=== PATIENT | female | born 1960 | race Hispanic/Latino ===

== ENCOUNTER 2020-12-12 07:07 | Day surgery (SDC) | payer SELFPAY ==
--- NOTE | 2020-12-11 09:49 | RAD REPORT ---
EXAM DESCRIPTION: RAD - Chest Pa And Lat (2 Views) - 12/11/2020 9:40 am CLINICAL HISTORY: PREOP Chest pain. COMPARISON: No comparisons FINDINGS: The lungs are clear. The heart is normal in size. No displaced fractures. IMPRESSION: No acute or concerning finding suspected.
[2020-12-12] MEDS ORDERED: Ringers Lactate 1,000 ML IV ONE (07:35)
[2020-12-12] MEDS ORDERED: FENTANYL CITR 100 MCG/2 ML ONE (07:46)
[2020-12-12] MEDS ORDERED: propofoL 200 MG/20 ML VIAL IV ONE (07:46)
[2020-12-12] MEDS ORDERED: LIDOCAINE 1% MPF 5 ML VIAL ONE (07:48)
[2020-12-12] MEDS ORDERED: MIDAZOLAM HCL 2 MG/2 ML INJ ONE (07:48)
[2020-12-12] MEDS ORDERED: GENTAMICIN 100 MG/100 ML BAG 100 ML IV ONE (08:45)
[2020-12-12] MEDS ORDERED: KETOROLAC 30 MG/ML INJ ONE (09:11)
[2020-12-12] MEDS ORDERED: dexAMETHasone 10 MG/ML VIAL ONE (09:11)
[2020-12-12] MEDS ORDERED: ONDANSETRON 4 MG/2 ML VIAL ONE (09:14)
[2020-12-12] MEDS ORDERED: HYDROCODONE/APAP 5/325 MG TAB PO PRN (09:33)
[2020-12-12] MEDS ORDERED: PHENAZOPYRIDINE 100MG TAB PO ONE ×2 (09:33→10:48)
[2020-12-12] MEDS ORDERED: Gentamicin Inj 160 MG in NA CHLORIDE 0.9% 100 ML IV SCH (10:00)
[2020-12-12] MEDS ORDERED: AMPICILLIN SODIUM 2 GM in NA CHLORIDE 0.9% 100 ML IVPB SCH (10:00)
[2020-12-12 10:13] VITALS: TEMP 97.2
--- NOTE | 2020-12-12 10:16 | OP ---
Surgeon: ARCHIE LORENZO Preoperative Diagnoses: 1.Gross hematuria. 2.Left L4 ureteral mass. 3.Left hydroureteronephrosis. Postoperative Diagnoses: 1.Gross hematuria. 2.Left L4 ureteral mass. 3.Left hydroureteronephrosis. 4.Grade 2 cystocele. Principle Procedures: 1.Cystoscopy. 2.Left retrograde pyelography. 3.Left ureteroscopy with left ureteral brush biopsy taken and sent for cytology. 4.Left ureteral balloon dilatation to 12-Anguillan. 5.Left 8-Anguillan by 26 cm double-J ureteral stent placement. Indication For Procedure: Ms. Abdalla is a 60-year-old woman, who presented to the [facility] with gross hematuria and was admitted to the hospital with left lower quadrant pain associated with the pr esence of a visible mid ureteral lesion at the body of L4. Because of the presence of visible blood in the urine and the ureteral lesion seen, she was counseled on the need for direct ureteroscopic inv estigation in addition to cystoscopy. Procedure In Detail: The patient was consented in the preoperative holding area before being transfe rred to the operative suite where general anesthesia was induced. She was given ampicillin 2 g and g entamicin 160-260 mg IV antimicrobial prophylaxis. Pneumo boots were provided for DVT prophylaxis. She was placed in the lithotomy position, padded and secured to the table appropriately, and her omer sawyer were prepped using Hibiclens. She was draped in standard fashion. The case was then begun usi ng a 22-Anguillan rigid cystoscope to traverse the urethra and into the bladder with ease. Of note, she had a significant, grade 2, cystocele. The urethra was then traversed using the 22-Anguillan rigid cys toscope and the bladder entered. It was then surveyed in its entirety. There were no concerning muc osal lesions, foreign bodies, or stones noted throughout. The entirety of the bladder was surveyed i ncluding the bladder neck. The ureteral orifices were orthotopic in location, and there was no visib le evidence of blood. The left ureteral orifice was then easily cannulated using the tip of a 5-Fren ch ureteral access catheter and a retrograde pyelogram was performed. Left retrograde pyelography: Using a 70:30 mixture of Omnipaque and saline, contrast was injected via the lumen of the 5-Anguillan ur eteral access catheter and did propagate with ease up a relatively nondilated distal ureter before re aching a point of narrowing and obstruction that lasted about 1-1.5 cm in the mid ureter at the upper half of the body of L4. Beyond this, the contrast did propagate into the proximal ureter without an y evidence of filling defect before entering a minimally dilated renal pelvis with mild-moderate kelly ectasis. Additional contrast bolus was given in order to completely fill the renal pelvis and calice s, and no additional mucosal lesions or filling defects were noted in the renal pelvis or proximal ur eter beyond the point of obstruction previously mentioned. As a result, I then passed a Sensor wire via the 5-Anguillan ureteral access catheter and did propagate with ease into the upper pole calyx of th e kidney on the left. I then used a dual-lumen catheter to pass over the Sensor wire into the mid di stal ureter and again injected a bolus of contrast to confirm appropriate intraureteral location of t he wires and ureteral access and dual-lumen catheter dilator. I then removed the dual-lumen catheter and performed direct vision ureteroscopy using a semi-rigid ureteroscope. Left semi-rigid ureteroscopy: Using the short semi-rigid ureteroscope, direct vision was employed to traverse the urethra and into the bladder and then I navigated up the ureteral orifice into the distal ureter and into the mid uret er where a point of strictured narrowing was observed approximately the diameter of 2 of the Sensor w ires at this point. There was no evidence of any papillary tumor or distinct nodular masslike appear ance noted. It simply appeared as the scar. As a result, I employed a ureteral brush biopsy to exte nsively sample the entirety of the circumference of the strictured area of the ureter. This was then sent for pathologic analysis via cytology. I then placed a Bentson guidewire via the semi-rigid ure teroscope beyond the stricture and into the upper pole of the kidney as confirmed fluoroscopically. I then utilized a 12-Anguillan 6 cm ureteral balloon to dilate the strictured region accordingly. Left ureteral balloon dilation: The balloon was positioned to straddle the midbody of L3 down through the midbody of L5 covering the entirety of the region of L4. It was then inflated initially to 15 mmHg and then to 18 and then ulti mately 20 mmHg. At no point was any significant waste noted suggestive of a dense strictured region. This was allowed to dilate for a couple of minutes before the balloon was then deflated confirmed f luoroscopically and removed. I then replaced the semi-rigid ureteroscope and navigated the scope bey ond the dilated portion of the ureter into the proximal ureter where no additional points of obstruct ion or mucosal lesions were noted. As such, I removed the semi-rigid ureteroscope and back-loaded th e rigid 22-Anguillan cystoscope over the indwelling safety wire in order to pass an 8-Anguillan by 26 cm do uble-J left ureteral stent. A coil was observed fluoroscopically within the upper pole of the kidney and an additional coil was formed within the bladder observed cystoscopically. The bladder was then decompressed of fluid and urine, and she tolerated the procedure well. Complications: None. Discharge Disposition: She will maintain the ureteral stent for at least the next 4-6 weeks before i t may be considered for removal. She should follow up within the next 2 weeks to discuss the results of the cytopathology in case any malignancy is noted. In the absence of any malignancy, we could pl an to remove the stent and observe for recurrence of obstruction over the course of the next several months and initiate further management at that time. Alternatively, we could plan repeat operative e valuation in 4-6 weeks with laser incision of a portion of the stricture that was incompletely dilate d by the 12-Anguillan ureteral balloon. This will be discussed on followup in the clinic. SABINO/BEULAH Voice ID: [id number] Report ID: [id number]
[2020-12-12] MEDS ORDERED: HYDROCODONE/APAP 5/325 MG TAB ONE (10:48)
[2020-12-12 11:01] VITALS: BP 137/57; O2SAT 100
--- NOTE | 2020-12-12 11:16 | RAD REPORT ---
EXAM DESCRIPTION: RAD - Urethrocystogrphy Retrograde - 12/12/2020 9:51 am CLINICAL HISTORY: ICD N 20.0 FINDINGS: Twenty-two fluoroscopic spot images obtained. Fluoroscopy time 0.4 minutes Left ureter was cannulated and contrast administered. Examination was performed by Dr Everett
== END 2020-12-12 11:05 | disposition home or self-care (01) ==
LOC: OR 07:07
PROVIDERS: ATTEND Urology
PROC: 0T778DZ Dilation of Left Ureter with Intraluminal Device, Via Natural or Artificial Opening Endoscopic (ICD-10-PCS; 2020-12-12)
PROC: 0TB78ZX Excision of Left Ureter, Via Natural or Artificial Opening Endoscopic, Diagnostic (ICD-10-PCS; principal; 2020-12-12 09:00)
DX: N13.1 Hydronephrosis with ureteral stricture, not elsewhere classified (principal); R31.0 Gross hematuria; U07.1 COVID-19
CPT/HCPCS: 51610; 71046; 74450; 87086; 87088; 88108; 88305; J0290; J1100; J1580; J2250; J2405; J2704; J3010; J7120; U0002